=== PATIENT | female | born 1990 | race Caucasian/White ===

== ENCOUNTER 2017-04-14 08:42 | Day surgery (SDC) | payer OTHER ==
[2017-04-14] MEDS: POLYMYXIN/BACITRACIN 1L IRRIG IRR
[2017-04-14] MEDS: BUPIVACAINE 0.25% (MPF) 30 ML INJ INJ
[~2017-04-14 08:42] MED LIST: CEFAZOLIN 1 GM INJ; CEFAZOLIN 2 GM/50 ML (PMX) 50 ML IVPB; SOD CHLORIDE 0.9% 1,000 ML IV
[2017-04-14] MEDS ORDERED: BUPIVACAINE 0.25% (MPF) 30 ML INJ (09:24)
[2017-04-14] MEDS ORDERED: POLYMYXIN/BACITRACIN 1L IRRIG (09:33)
[2017-04-14] MEDS ORDERED: FENTAnyl 50 MCG/ML VIAL (09:43)
[2017-04-14] MEDS ORDERED: PHENYLephrine (100 MCG/ML) 5ML SYG (09:55)
[2017-04-14] MEDS ORDERED: LIDOCAINE 2% (SDV) 5 ML INJ (10:01)
[2017-04-14] MEDS ORDERED: SUCCINYLCHOLINE CHLORIDE 100 MG/5 ML SYG IV (10:01)
[2017-04-14] MEDS ORDERED: PROPOFOL 20 ML (10:01)
[2017-04-14] MEDS ORDERED: SUGAMMADEX SODIUM 200 MG/2 ML VIAL IV (10:01)
[2017-04-14] MEDS ORDERED: ROCURONIUM 50 MG INJ (10:01)
[2017-04-14] MEDS ORDERED: ROPIVACAINE 0.5 % 30 ML VIAL (10:23)
[2017-04-14] MEDS ORDERED: HYDROmorphONE (0.2 MG/ML) 10ML SYG IV ×2 (10:30)
[2017-04-14] MEDS ORDERED: DIPHENHYDRAMINE 50 MG INJ IV (10:30)
[2017-04-14] MEDS ORDERED: ONDANSETRON 4 MG INJ IV (10:30)
[2017-04-14] MEDS ORDERED: MEPERIDINE 25 MG INJ IV (10:30)
[2017-04-14] MEDS ORDERED: FENTAnyl 50 MCG/ML VIAL IV ×2 (10:30)
[2017-04-14] MEDS: METOCLOPRAMIDE 10 MG INJ IV (10:48)
[2017-04-14] MEDS: HYDROmorphONE (0.2 MG/ML) 10ML SYG IV ×2 (10:48→10:53)
[2017-04-14] MEDS: HYDROCODONE/APAP (5/325) TAB PO (12:36)
== END 2017-04-14 14:23 | disposition home or self-care (01) ==
LOC: SDS 08:42
DX: K43.2 Incisional hernia without obstruction or gangrene (principal); E66.01 Morbid (severe) obesity due to excess calories; Z68.41 Body mass index [BMI] 40.0-44.9, adult; J45.909 Unspecified asthma, uncomplicated
CPT/HCPCS: 49654; 84703

== ENCOUNTER 2018-06-12 08:13 | Day surgery (SDC) | payer OTHER ==
[2018-06-12] MEDS ORDERED: NEOSTIGMINE 3 MG/3 ML SYRINGE ×2 (10:26→11:22)
[2018-06-12] MEDS ORDERED: LIDOCAINE 2% (SDV) 5 ML INJ (10:26)
[2018-06-12] MEDS ORDERED: ROCURONIUM 50 MG INJ (10:26)
[2018-06-12] MEDS ORDERED: PROPOFOL 20 ML (10:26)
[2018-06-12] MEDS ORDERED: GLYCOPYRROLATE 0.4 MG INJ ×4 (10:26→11:22)
[2018-06-12] MEDS ORDERED: SUCCINYLCHOLINE CHLORIDE 100 MG/5 ML SYG IV (10:26)
[2018-06-12] MEDS ORDERED: MEPERIDINE 100 MG INJ (10:51)
[2018-06-12] MEDS ORDERED: CEFAZOLIN 1 GM INJ (11:21)
[2018-06-12] MEDS ORDERED: METOCLOPRAMIDE 10 MG INJ (11:22)
[2018-06-12] MEDS ORDERED: ONDANSETRON 4 MG INJ (11:22)
[2018-06-12] MEDS: POLYMYXIN B 500000 UNIT INJ (11:37)
[2018-06-12] MEDS: BACITRACIN 50000 UNITS INJ (11:37)
[2018-06-12] MEDS: BACITRACIN/POLYMYXIN 28.35 GM OINT TOP (11:38)
[2018-06-12] MEDS: BUPIVACAINE 0.5%/EPI (SDV) 30 ML INJ (11:56)
[2018-06-12] MEDS ORDERED: HYDROmorphONE 1 MG/5 ML IV SYRINGE IV ×3 (12:00)
[2018-06-12] MEDS ORDERED: FENTAnyl 50 MCG/ML VIAL IV ×2 (12:00)
[2018-06-12] MEDS ORDERED: METOCLOPRAMIDE 10 MG INJ IV (12:00)
[2018-06-12] MEDS ORDERED: OXYCODONE/ACETAMINOPHEN (5/325) TAB PO ×2 (12:00)
[2018-06-12] MEDS ORDERED: DIPHENHYDRAMINE 50 MG INJ IV (12:00)
[2018-06-12] MEDS ORDERED: EPHEDrine SULFATE 50 MG/5 ML SYG IV (12:00)
[2018-06-12] MEDS ORDERED: MIDAZOLAM 1 MG/ML 2 ML INJ IV (12:00)
[2018-06-12] MEDS ORDERED: MEPERIDINE 25 MG INJ IV (12:00)
[2018-06-12] MEDS ORDERED: LABETALOL HCL 20MG INJ IV (12:00)
[2018-06-12] MEDS ORDERED: hydrALAzine 20 MG INJ IV (12:00)
[2018-06-12] MEDS ORDERED: IBUPROFEN 600 MG TAB PO (12:30)
[2018-06-12] MEDS ORDERED: KETOROLAC 30 MG INJ IV (12:30)
[2018-06-12] MEDS ORDERED: HYDROCODONE/APAP (5/325) TAB PO ×2 (12:30)
[2018-06-12] MEDS ORDERED: ONDANSETRON 4 MG INJ IV (12:30)
[2018-06-12] MEDS: FENTAnyl 50 MCG/ML VIAL IV (12:31)
[2018-06-12] MEDS: ONDANSETRON 4 MG INJ IV (12:31)
== END 2018-06-12 14:03 | disposition home or self-care (01) ==
LOC: SDS 08:13
DX: L05.91 Pilonidal cyst without abscess (principal); J45.909 Unspecified asthma, uncomplicated
CPT/HCPCS: 11772; 88304